=== PATIENT | female | born 1935 | race African-American/Black ===

== ENCOUNTER 2022-04-29 04:09 | Inpatient (IN) ==
[2022-04-29] MEDS ORDERED: PANTOPRAZOLE 40 MG VIAL IV STA (04:31)
[2022-04-29] MEDS ORDERED: ASPIRIN 325 MG TABLET PO STA (04:31)
[2022-04-29] MEDS ORDERED: MORPHINE 2 MG/1 ML SYRINGE IV STA (04:31)
[2022-04-29] MEDS ORDERED: ONDANSETRON 4 MG/2 ML VIAL IV STA (04:31)
[2022-04-29 04:50] LABS: Basophils % 0.2 % (0.0-0.8); Eosinophils # 0.1 10*3/uL (0.0-0.87); Eosinophils % 0.9 % (0.00-10.9); Hematocrit 20.3 VOL% (35.7-47.0); Immature Granulocytes % 3.1 %; Lymphocytes # 2.7 10*3/uL (1.4-4.0); Lymphocytes % 42.1 % (21.3-54.2); Mean Corpuscular HGB Conc 31.5 GM/DL (32-36); Mean Corpuscular Volume 92.7 FL (87-102); Mean Platelet Volume 11.7 FL (9.6-12.0); Monocytes # 0.7 10*3/uL (0.11-0.8); Monocytes % 10.5 % (1.7-12.7); NRBC # 0.13 10*3/uL; Neutrophils % 43.2 % (38.7-73.9); Platelet Count 77 T/CUMM (130-400); Red Blood Count 2.19 MC/CUMM (3.8-5.5); White Blood Count 6.39 T/CUMM (4-12)
[2022-04-29 04:58] LABS: Hemoglobin 6.4 GM/DL (12.0-16.0); INR 1.3; PT Patient Result 14.1 SECS (10.1-12.1)
[2022-04-29 05:06] LABS: Albumin 2.2 G/DL (3.4-5.0); Bilirubin,Total 0.4 MG/DL (0.20-1.00); Calcium 8.2 MG/DL (8.5-10.1); Osmolality,Calculated 276.5 MOS/KG (273-304); Potassium 4.9 MMOL/L (3.5-5.1); Total Protein 10.7 G/DL (6.4-8.2)
[2022-04-29] MEDS ORDERED: SODIUM CHLORIDE 0.9% 500 ML IV STA (05:08)
[2022-04-29 05:21] LABS: Band Neutrophils 3 % (0-10); Eosinophils 1 % (0-10); Lymphocytes 35 % (20-55); Nucleated Red Blood Cells 1 /100 WBC (0-5); Total Cells Counted 100
[2022-04-29 05:22] LABS: Anisocytosis 1+; Hypochromia Slight
[2022-04-29 05:23] LABS: Platelet Estimate Decreased; Rouleau Few
[2022-04-29] MEDS ORDERED: ONDANSETRON 4 MG/2 ML VIAL IV PRN (05:54)
[2022-04-29] MEDS ORDERED: hydrALAZINE 20 MG/1 ML VIAL IV PRN (05:54)
[2022-04-29] MEDS ORDERED: GLUCAGON 1 MG VIAL IM PRN ×2 (05:54→13:44)
[2022-04-29] MEDS ORDERED: ACETAMINOPHEN 325 MG TABLET PO PRN (05:54)
[2022-04-29] MEDS ORDERED: MORPHINE 2 MG/1 ML SYRINGE IV PRN (05:54)
[2022-04-29] MEDS ORDERED: SODIUM CHLORIDE 0.9% 1,000 ML IV PRN (06:01)
[2022-04-29] MEDS ORDERED: DEXTROSE 10% 250 ML BAG IV PRN (06:03)
[2022-04-29 07:50] LABS: Amorphous Crystals,Urine Few /HPF (Few); Bacteria,Urine Occasional /HPF (Few); Mucus,Urine Occasional /LPF (Occasional)
[2022-04-29 07:51] LABS: Bilirubin,Urine Negative (Negative); Blood, Urine Negative (Negative); Glucose,Urine (UA) Negative (Negative); Ketones,Urine Negative (Negative); Nitrite,Urine Negative (Negative); Protein,Urine >=300 mg/dL (Negative); Urine Appearance Clear (Clear); Urine Color Yellow (Yellow); Urine Urobilinogen 0.2 eU/dL (<2.0)
[2022-04-29] MEDS: INSULIN LISPRO 100 UNIT/ML SUBCUT SCH ×4 (11:22→21:50)
[2022-04-29] MEDS ORDERED: FUROSEMIDE 40 MG/4 ML VIAL IV ONE (12:11)
[2022-04-29] MEDS ORDERED: DEXTROSE 50% 25 GM/50 ML VIAL IV PRN (13:44)
[2022-04-29] MEDS: FUROSEMIDE 40 MG/4 ML VIAL IV SCH (15:17)
[2022-04-29] MEDS: SODIUM BICARBONATE 650 MG TABLET PO SCH ×2 (15:17→21:50)
[2022-04-29] MEDS: FLUoxetine 10 MG CAPSULE PO SCH (15:18)
[2022-04-29] MEDS: ASPIRIN EC 81 MG TABLET PO SCH (15:18)
[2022-04-29] MEDS: sitaGLIPtin 25 MG TABLET PO SCH (15:18)
[2022-04-29] MEDS: FERROUS SULFATE 325 MG TABLET PO SCH (15:18)
[2022-04-29] MEDS: METOPROLOL SUCCINATE XL 50 MG TABLET PO SCH (15:19)
[2022-04-29] MEDS ORDERED: PANTOPRAZOLE 40 MG VIAL IV SCH (21:00)
[2022-04-29] MEDS: ATORVASTATIN 40 MG TABLET PO SCH (21:50)
[2022-04-30 05:06] LABS: Basophils % 0.2 % (0.0-0.8); Eosinophils # 0.1 10*3/uL (0.0-0.87); Immature Granulocytes Absolute 0.21 #; Lymphocytes # 1.8 10*3/uL (1.4-4.0); Lymphocytes % 34.3 % (21.3-54.2); Mean Corpuscular HGB Conc 32.9 GM/DL (32-36); Mean Corpuscular Volume 90.2 FL (87-102); Mean Platelet Volume 10.2 FL (9.6-12.0); Monocytes # 0.8 10*3/uL (0.11-0.8); Monocytes % 14.3 % (1.7-12.7); NRBC # 0.13 10*3/uL; Neutrophils % 46.2 % (38.7-73.9); White Blood Count 5.25 T/CUMM (4-12)
[2022-04-30 05:08] LABS: Red Blood Count 2.66 MC/CUMM (3.8-5.5)
[2022-04-30 05:09] LABS: Hemoglobin 7.9 GM/DL (12.0-16.0); Platelet Count 99 T/CUMM (130-400)
[2022-04-30 05:19] LABS: Alanine Aminotransferase 30 U/L (13-56); Alkaline Phosphatase 139 U/L (45-117); Aspartate Amino Transferase 33 U/L (0-37); Bilirubin,Total < 0.39 MG/DL (0.20-1.00); Blood Urea Nitrogen 39 MG/DL (7-18); Calcium 8.3 MG/DL (8.5-10.1); Carbon Dioxide 23 MMOL/L (21-32); Chloride 102 MMOL/L (98-107); Glucose 118 MG/DL (74-106); Osmolality,Calculated 277.2 MOS/KG (273-304); Potassium 4.2 MMOL/L (3.5-5.1); Sodium 134 MMOL/L (136-145); Total Protein 10.4 G/DL (6.4-8.2)
[2022-04-30 05:28] LABS: Eosinophils 1 % (0-10); Hypochromia Slight; Lymphocytes 23 % (20-55); Microcytosis Slight; Nucleated Red Blood Cells 1 /100 WBC (0-5); Platelet Estimate Decreased; Total Cells Counted 100
[2022-04-30] MEDS: INSULIN LISPRO 100 UNIT/ML SUBCUT SCH ×4 (09:42→20:47)
[2022-04-30] MEDS: ISOSORBIDE MONONITRATE 30 MG TABLET PO SCH (10:10)
[2022-04-30] MEDS: sitaGLIPtin 25 MG TABLET PO SCH (10:11)
[2022-04-30] MEDS: SODIUM BICARBONATE 650 MG TABLET PO SCH ×2 (10:11→20:46)
[2022-04-30] MEDS: FERROUS SULFATE 325 MG TABLET PO SCH (10:11)
[2022-04-30] MEDS: ASPIRIN EC 81 MG TABLET PO SCH (10:11)
[2022-04-30] MEDS: CLOPIDOGREL 75 MG TABLET PO SCH (10:11)
[2022-04-30] MEDS: FLUoxetine 10 MG CAPSULE PO SCH (10:12)
[2022-04-30] MEDS: METOPROLOL SUCCINATE XL 50 MG TABLET PO SCH (10:12)
[2022-04-30] MEDS: FUROSEMIDE 40 MG/4 ML VIAL IV SCH ×2 (10:13→18:21)
[2022-04-30] MEDS: ATORVASTATIN 40 MG TABLET PO SCH (20:46)
[2022-05-01 04:14] LABS: Basophils % 0.2 % (0.0-0.8); Eosinophils # 0.1 10*3/uL (0.0-0.87); Hemoglobin 8.4 GM/DL (12.0-16.0); Immature Granulocytes Absolute 0.19 #; Lymphocytes # 1.8 10*3/uL (1.4-4.0); Lymphocytes % 37.4 % (21.3-54.2); Mean Corpuscular HGB Conc 32.3 GM/DL (32-36); Mean Corpuscular Volume 91.2 FL (87-102); Mean Platelet Volume 10.2 FL (9.6-12.0); Monocytes # 0.6 10*3/uL (0.11-0.8); Monocytes % 13.2 % (1.7-12.7); Neutrophils % 44.2 % (38.7-73.9); Platelet Count 96 T/CUMM (130-400); Red Blood Count 2.85 MC/CUMM (3.8-5.5); Red Cell Distribution Width 18.6 % (9.3-17.3); White Blood Count 4.79 T/CUMM (4-12)
[2022-05-01 04:30] LABS: Potassium 3.9 MMOL/L (3.5-5.1)
[2022-05-01 04:30] LABS: % Iron Saturation 33.3 % (18-50)
[2022-05-01 04:33] LABS: Eosinophils 2 % (0-10); Lymphocytes 29 % (20-55); Nucleated Red Blood Cells 1 /100 WBC (0-5); Platelet Estimate Decreased; Total Cells Counted 100
[2022-05-01 04:34] LABS: Hypochromia Slight; Rouleau Few
[2022-05-01] MEDS: INSULIN LISPRO 100 UNIT/ML SUBCUT SCH ×3 (09:51→17:33)
[2022-05-01] MEDS: FERROUS SULFATE 325 MG TABLET PO SCH (09:57)
[2022-05-01] MEDS: CLOPIDOGREL 75 MG TABLET PO SCH (09:57)
[2022-05-01] MEDS: FLUoxetine 10 MG CAPSULE PO SCH (09:57)
[2022-05-01] MEDS: METOPROLOL SUCCINATE XL 50 MG TABLET PO SCH (09:57)
[2022-05-01] MEDS: ASPIRIN EC 81 MG TABLET PO SCH (09:57)
[2022-05-01] MEDS: SODIUM BICARBONATE 650 MG TABLET PO SCH (09:57)
[2022-05-01] MEDS: sitaGLIPtin 25 MG TABLET PO SCH (09:58)
[2022-05-01] MEDS: ISOSORBIDE MONONITRATE 30 MG TABLET PO SCH (09:58)
[2022-05-01] MEDS: FUROSEMIDE 40 MG/4 ML VIAL IV SCH (10:02)
[2022-05-01] MEDS ORDERED: PALONOSETRON 0.25 MG/5 ML VIAL IV ONE (12:30)
[2022-05-01] MEDS ORDERED: DEXAMETHASONE 10 MG/1 ML VIAL IV ONE (12:30)
[2022-05-01] MEDS ORDERED: BORTEZOMIB SUBCUT ONE (13:00)
[2022-05-01] MEDS ORDERED: CYCLOPHOSPHAMIDE IV ONE (14:00)
[2022-05-01] MEDS ORDERED: SODIUM CHLORIDE 0.9% IV ONE (14:00)
[2022-05-01 15:34] VITALS: BP 155/87
[2022-05-02] MEDS ORDERED: FUROSEMIDE 40 MG TABLET PO SCH (09:00)
== END 2022-05-01 18:25 | disposition home health service (06) | DRG 840 ==
LOC: SUATTDRO → N.ED 04:09 → N.EDINP 05:54 → N.TELEN 08:26
PROVIDERS: ADMIT Emergency Medicine; ATTEND Emergency Medicine